=== PATIENT | male | born 1985 | race Caucasian/White ===

== ENCOUNTER 2018-06-03 06:27 | Emergency (ER) | payer SELFPAY ==
[~2018-06-03] VITALS: Ht 167.6 cm; Wt 109.0 kg
[2018-06-03 06:31] VITALS: Ht 167.6 cm; Wt 109.0 kg
[2018-06-03] MEDS ORDERED: KETOROLAC 30 MG INJ IV STA (06:53)
[2018-06-03] MEDS ORDERED: ONDANSETRON 4 MG INJ IV STA (06:53)
[2018-06-03] MEDS ORDERED: morphine 4 MG/ML VIAL IV STA (07:43)
[2018-06-03] MEDS ORDERED: DOCUSATE SODIUM 100 MG CAP PO ONE (08:00)
[2018-06-03] MEDS ORDERED: DOCU-144 PO (08:57)
[2018-06-03] MEDS ORDERED: MAGN296S40 PO (08:58)
--- NOTE | 2018-06-03 09:40 | ERD ---
ER Documentation Chief Complaint Chief Complaint Complains of abdominal pain with bloating that radiates to the back HPI Patient is a 33-year-old male who presents ER for concerns of diffuse abdominal pain with bloating times 2 days. Patient states the pain is throughout his abdomen. Patient says the pain comes and goes. Patient states he did tried having a "detox drink" which did not help with symptoms. Patient has reported small pebbly bowel movements. Patient does feel as if he is constipated. Patient does report forcing himself to vomit twice secondary to feeling bloated. Patient denies any fevers, chills, chest pain, shortness of breath, diarrhea. Patient denies any dysuria, urgency, urgency or hematuria. No recent travel. No sick contacts. ROS All systems reviewed and are negative except as per history of present illness. Medications Home Meds Active Scripts Magnesium Citrate* (Magnesium Citrate*) 296 Ml Solution, 296 ML PO ONCE, #1 BOTTLE Drink 1/2 bottle at first. If no bowel movement in 2 hours, drink 2nd half Prov:JOSE GREENFIELD PA-C 06/03/18 Docusate Sodium* (Colace*) 100 Mg Capsule, 100 MG PO TID, #30 CAP Prov:JOSE GREENFIELD PA-C 06/03/18 Allergies Allergies: Coded Allergies: No Known Allergy (Unverified , 06/03/18) PMhx/Soc Medical and Surgical Hx: pt denies Medical Hx, pt denies Surgical Hx Hx Alcohol Use: Yes (sociaaly) Hx Substance Use: Yes (marijuana) Smoking Status: Never smoker FmHx Family History: No diabetes Physical Exam Vitals Vital Signs Date Temp Pulse Resp B/P (MAP) Pulse Ox O2 O2 Flow FiO2 Time Delivery Rate 06/03/18 98.5 71 20 144/92 98 06:31 (109) Physical Exam GENERAL: Well-developed, well-nourished male. Appears in no acute distress. HEAD: Normocephalic, atraumatic. No deformities or ecchymosis. EYE: Pupils equal, round, and reactive to light. EOMs intact. No conjunctival erythema. No eye discharge. NECK: Supple. No meningismus. Normal ROM of the neck. LUNG: Clear to auscultation bilaterally. No rhonchi, wheezing, rales or coarse b reath sounds. HEART: Regular rate and rhythm. No murmurs, rubs or gallops. ABDOMEN: Soft. Diffuse abdominal pain throughout the abdomen. Mildly distended. positive bowel sounds in all four quadrants. No rebound tenderness, no guarding. (-) McBurney's point tenderness. No CVA tenderness. EXTREMITES: Equal pulses bilaterally. No peripheral clubbing, cyanosis or edema. No unilateral leg swelling. NEUROLOGIC: Alert and oriented to person, place and time. Moving all four extremities. 5/5 strength in all extremities. Normal speech. Steady gait. SKIN: Normal color. Warm and dry. No rashes or lesions. Result Diagram: 06/03/18 0700 06/03/18 0700 Results 24 hrs Laboratory Tests Test 06/03/18 07:00 White Blood Count 8.2 10^3/ul Red Blood Count 5.19 10^6/ul Hemoglobin 16.0 g/dl Hematocrit 47.9 % Mean Corpuscular Volume 92.3 fl Mean Corpuscular Hemoglobin 30.8 pg Mean Corpuscular Hemoglobin Concent 33.4 g/dl Red Cell Distribution Width 12.1 % Platelet Count 232 10^3/UL Mean Platelet Volume 11.3 fl Immature Granulocytes % 0.700 % Neutrophils % 75.3 % Lymphocytes % 16.1 % Monocytes % 6.7 % Eosinophils % 0.6 % Basophils % 0.6 % Nucleated Red Blood Cells % 0.0 /100WBC Immature Granulocytes # 0.060 10^3/ul Neutrophils # 6.2 10^3/ul Lymphocytes # 1.3 10^3/ul Monocytes # 0.6 10^3/ul Eosinophils # 0.1 10^3/ul Basophils # 0.1 10^3/ul Nucleated Red Blood Cells # 0.0 10^3/ul Urine Color YELLOW Urine Clarity CLEAR Urine pH 8.0 Urine Specific [place] 1.018 Urine Ketones NEGATIVE mg/dL Urine Nitrite NEGATIVE mg/dL Urine Bilirubin NEGATIVE mg/dL Urine Urobilinogen NEGATIVE mg/dL Urine Leukocyte Esterase TRACE Estefania/ul Urine Microscopic RBC 0 /HPF Urine Microscopic WBC 1 /HPF Urine Hemoglobin NEGATIVE mg/dL Urine Glucose NEGATIVE mg/dL Urine Total Protein NEGATIVE mg/dl Sodium Level 145 mmol/L Potassium Level 4.6 mmol/L Chloride Level 102 mmol/L Carbon Dioxide Level 30 mmol/L Anion Gap 13 Blood Urea Nitrogen 15 mg/dl Creatinine 1.09 mg/dl Est Glomerular Filtrat Rate mL/min > 60 mL/min Glucose Level 117 mg/dl Calcium Level 9.5 mg/dl Total Bilirubin 0.1 mg/dl Direct Bilirubin 0.00 mg/dl Indirect Bilirubin 0.1 mg/dl Aspartate Amino Transf (AST/SGOT) 58 IU/L Alanine Aminotransferase (ALT/SGPT) 137 IU/L Alkaline Phosphatase 98 IU/L Total Protein 7.4 g/dl Albumin 4.6 g/dl Globulin 2.80 g/dl Albumin/Globulin Ratio 1.64 Lipase 51 U/L Current Medications Medications Dose Sig/Kamlesh Start Time Status Last (Trade) Ordered Route PRN Stop Time Admin Dose Reason Admin Ondansetron 4 mg ONCE STAT 06/03/18 DC 06/03/18 HCl (Zofran IV 06:53 06:58 Inj) 06/03/18 06:54 Ketorolac 30 mg ONCE STAT 06/03/18 DC 06/03/18 Tromethamine IV 06:53 06:58 (Toradol) 06/03/18 06:54 Simethicone 80 mg ONCE ONCE 06/03/18 DC 06/03/18 (Mylicon) PO 08:00 07:56 06/03/18 08:01 Docusate 100 mg ONCE ONCE 06/03/18 DC 06/03/18 Sodium PO 08:00 07:56 (Colace) 06/03/18 08:01 Morphine 4 mg ONCE STAT 06/03/18 DC 06/03/18 Sulfate IV 07:43 07:56 (morphine) 06/03/18 07:45 Procedures/MDM Patient: DILMA WALSH : 1985 Age: 33 Sex: M MR #: [id number] DOS: 06/03/18 0654 Ordering MD: JOSE GREENFIELD PA-C Location: [facility] Room/Bed: PROCEDURE: XR Abdomen. CLINICAL INDICATION: abdominal pain, constipation TECHNIQUE: AP abdomen x-ray. COMPARISON: None. FINDINGS: There is a moderate amount of retained stool in the proximal large bowel. No apparent dilatation of the small bowel or evidence of obstruction. There is no sign of intraperitoneal free air. No pathologic calcifications are identified. Regional bones are unremarkable. IMPRESSION: Moderate amount of retained stool in the proximal large bowel, otherwise no acute findings. RPTAT: [facility] Physician Jayme Date Time Electronically viewed and signed by Bella Whittington Physician on 06/03/2018 07:23 xB/ CC: JOSE GREENFIELD PA-C [phone] Departure Diagnosis: Primary Impression: Abdominal pain Abdominal location: unspecified location Qualified Codes: R10.9 - Unspecified abdominal pain Additional Impressions: Gas pain Constipation Constipation type: unspecified constipation type Qualified Codes: K59.00 - Constipation, unspecified Elevated LFTs Condition: Fair Patient Instructions: Abdominal Pain, Treating Constipation Referrals: [facility] YOU HAVE RECEIVED A MEDICAL SCREENING EXAM AND THE RESULTS INDICATE THAT YOU DO NOT HAVE A CONDITION THAT REQUIRES URGENT TREATMENT IN THE EMERGENCY DEPARTMENT. FURTHER EVALUATION AND TREATMENT OF YOUR CONDITION CAN WAIT UNTIL YOU ARE SEEN IN YOUR DOCTORS OFFICE WITHIN THE NEXT 1-2 DAYS. IT IS YOUR RESPONSIBILITY TO MAKE AN APPOINTMENT FOR FOL-UP CARE. IF YOU HAVE A PRIMARY DOCTOR --you should call your primary doctor and schedule an appointment IF YOU DO NOT HAVE A PRIMARY DOCTOR YOU CAN CALL OUR PHYSICIAN REFERRAL HOTLINE AT IF YOU CAN NOT AFFORD TO SEE A PHYSICIAN YOU CAN CHOSE FROM THE FOLLOWING [facility] CL[facility]ICS [facility] [address] [facility]. [facility] [address] [facility]. [facility] [address] [facility] [facility] [address]. [facility] [address] [facility]. [facility]. [address] [facility]. [facility] YOU HAVE RECEIVED A MEDICAL SCREENING EXAM AND THE RESULTS INDICATE THAT YOU DO NOT HAVE A CONDITION THAT REQUIRES URGENT TREATMENT IN THE EMERGENCY DEPARTMENT. FURTHER EVALUATION AND TREATMENT OF YOUR CONDITION CAN WAIT UNTIL YOU ARE SEEN IN YOUR DOCTORS OFFICE WITHIN THE NEXT 1-2 DAYS. IT IS YOUR RESPONSIBILITY TO MAKE AN APPOINTMENT FOR FOLOW-UP CARE. IF YOU HAVE A PRIMARY DOCTOR --you should call your primary doctor and schedule and appointment IF YOU DO NOT HAVE A PRIMARY DOCTOR YOU CAN CALL OUR PHYSICIAN REFERRAL HOTLINE AT . IF YOU CAN NOT AFFORD TO SEE A PHYSICIAN YOU CAN CHOSE FROM THE FOLLOWING [facility] INSTITUTIONS: [facility] [address] [place] [address] [facility] [address] [place], [place] [id number] [place] [address] [address] [place] [address] [facility] URGENT CARE/SPECIALTIES Additional Instructions: Drink plenty of fluids. Increase H20 intake. Call your primary care doctor TOMORROW for an appointment during the next 1-2 days.See the doctor sooner or return here if your condition worsens before your appointment time. JOSE GREENFIELD PA-C Jun 03, 2018 09:40
== END 2018-06-03 09:09 | disposition home or self-care (01) ==
LOC: FTE 06:27
DX: R14.0 Abdominal distension (gaseous) (principal); K59.00 Constipation, unspecified; R79.89 Other specified abnormal findings of blood chemistry
CPT/HCPCS: 36415; 74018; 74176; 80053; 81001; 83690; 85025; 96374; 96375; 99285; J1885; J2270; J2405